=== PATIENT | female | born 1990 | race Caucasian/White ===

== ENCOUNTER 2022-08-04 13:00 | Outpatient (CLI) | payer MEDICARE, MEDICAID, SELFPAY ==
--- NOTE | 2022-08-07 15:50 | WPDHOLTEREM ---
Holter/Event Monitor Holter/Event Monitor Date of procedure: 08/04/22 Holter/Event Procedure: 48 Hr Holter Monitor Indications: Palpitations Conclusion: 1. 48 hour holter monitor on 08/04/22. 2. Underlying rhythm is sinus rhythm. HR range 61-164 bpm; average HR 102 bpm. HR at 164 bpm at 19:36. 3. There are 94 premature supraventricular complexes, 11 supraventricular couplets and 9 supraventricular trigeminy. No supraventricular tachycardia. 4. There is 1 premature ventricular complex. No ventricular tachycardia. 5. No sinoatrial or atrioventricular blocks. No significant pauses greater than 2 seconds. 6. Patient reports symptoms of palpitations which demonstrate sinus rhythm, HR range 93-141 bpm.
== END 2022-08-04 13:01 | disposition home or self-care (01) ==
LOC: ANHCARD 13:01
PROVIDERS: PCP Internal Medicine; Visit Provider Nurse Practitioner
DX: R00.2 Palpitations (principal)
CPT/HCPCS: 93225; 93226